=== PATIENT | female | born 1995 | race Two or more races ===

== ENCOUNTER → 2020-03-12 | Outpatient (CLI) | payer OTHER, SELFPAY ==
[2020-03-17 15:25] LABS: HPV Reflexed? NOT INDICATED
== END | disposition home or self-care (01) ==
LOC: LABSPEC 03-13 13:46
PROVIDERS: Visit Provider Obstetrics & Gynecology
DX: Z12.4 Encounter for screening for malignant neoplasm of cervix (principal)
CPT/HCPCS: 88175; G0145